=== PATIENT | female | born 1960 | race Caucasian/White ===

== ENCOUNTER → 2016-08-06 | Outpatient (CLI) | payer BC ==
[~2016-08-06] MED LIST: BENICAR
== END ==
LOC: LAB 08:16
DX: Z00.00 Encounter for general adult medical examination without abnormal findings (principal); E66.01 Morbid (severe) obesity due to excess calories; I10 Essential (primary) hypertension

== ENCOUNTER → 2016-08-12 | Outpatient (CLI) | payer BC | LOC: MAMMO 12:49 | DX: Z00.00 Encounter for general adult medical examination without abnormal findings (principal); E66.01 Morbid (severe) obesity due to excess calories; R73.01 Impaired fasting glucose | CPT/HCPCS: G0202 ==

== ENCOUNTER → 2016-08-28 | Outpatient (CLI) | payer BC | LOC: MAMMO 12:56 | DX: R92.8 Other abnormal and inconclusive findings on diagnostic imaging of breast (principal); N63 Unspecified lump in breast ==

== ENCOUNTER → 2017-08-10 | Outpatient (CLI) | payer BC ==
[2013-10-15 16:15] VITALS: BP 131/69
[2017-08-10 09:46] LABS: BUN/CREATININE RATIO 16.1 (6.0-26.0); CALCIUM 8.8 mg/dL (8.4-10.2); POTASSIUM 4.3 mmol/L (3.6-5.0)
== END ==
LOC: LAB 09:05
PROVIDERS: Nurse Practitioner Family
DX: Z00.00 Encounter for general adult medical examination without abnormal findings (principal); E66.01 Morbid (severe) obesity due to excess calories; R73.01 Impaired fasting glucose

== ENCOUNTER → 2017-09-08 | Outpatient (CLI) | payer BC ==
[2013-10-15 16:15] VITALS: BP 131/69
== END ==
LOC: MAMMO 13:30 → RAD 13:45
DX: Z12.31 Encounter for screening mammogram for malignant neoplasm of breast (principal)

== ENCOUNTER → 2019-02-01 | Outpatient (CLI) | payer BC ==
[2013-10-15 16:15] VITALS: BP 131/69
== END ==
LOC: MAMMO 13:31
DX: Z12.31 Encounter for screening mammogram for malignant neoplasm of breast (principal)

== ENCOUNTER → 2019-02-17 | Outpatient (CLI) | payer BC ==
[2013-10-15 16:15] VITALS: BP 131/69
== END ==
LOC: MAMMO 12:15 → RAD 12:15
DX: N63.23 Unspecified lump in the left breast, lower outer quadrant (principal); R92.8 Other abnormal and inconclusive findings on diagnostic imaging of breast